=== PATIENT | female | born 1975 | race Caucasian/White ===

== ENCOUNTER → 2021-02-14 | Outpatient (CLI) | payer OTHER ==
[~2021-02-14] MED LIST: ACETAMINOPHEN-1 EAC1 PO; AMOXICILLIN 50500 MG PO; CARAFATE 1 GM TA1 GM PO; HYDROCODONE-APA1 TA1 PO; IBUPROFEN 600600 M1 PO; LIDOCAINE VISC100 M1 SWISH&SPIT; MEDROLDOSEPACK PO; NAPROSYN500 MG PO; NOHOMEMEDICATIONS; NORCO 5-325 TA1 EACH PO; PEPCID20 MG PO; PROAIR HFA8.5 GM INH; REGLAN 10 MG TA10 MG PO; ROBAXIN 750 MG750 MG PO; VICODIN 5-5001 EACH PO; ZPAK PO
== END ==
LOC: M.RAD 09:00
PROVIDERS: ATTEND Family Medicine
DX: R92.2 Inconclusive mammogram (principal); N64.4 Mastodynia; Z80.3 Family history of malignant neoplasm of breast

== ENCOUNTER → 2021-06-14 | Outpatient (CLI) | payer OTHER | LOC: M.CT 09:39 | PROVIDERS: ATTEND Family Medicine | DX: Z13.6 Encounter for screening for cardiovascular disorders (principal); I25.10 Atherosclerotic heart disease of native coronary artery without angina pectoris ==

== ENCOUNTER → 2021-06-14 | Outpatient (CLI) | payer OTHER ==
--- NOTE | 2021-06-18 12:38 | PF ---
[address] [address] PULMONARY FUNCTION REPORT Name: GENEVIEVE WYNNEN Room: [facility]#: [id number] Admission: 06/14/21 Attend Phys: Jamie Baker DO Discharge: Date of : 79 Report #: [id number] THIS REPORT FOR: cc: Jamie Baker Adam J DO Pervez, Adeel MD ~ DATE OF VISIT: 06/14/2021 The FEV1/FVC ratio is decreased to 64% with an FVC normal at 92% and FEV1 decreased to 73%. The FEF 25-75 is also decreased to 49%. After the administration of a bronchodilator, there is no significant increase in any of these values. The patient's post-bronchodilator FEV1 is 2.27 L. The total lung capacity is normal at 84% with residual volume decreased to 48%. The DLCO as adjusted for hemoglobin is decreased to 74%. IMPRESSION: 1. Moderate obstruction without evidence of reversibility. 2. There is an isolated reduction in residual volume to 48% on lung volumes. The total lung capacity is normal. This could be a normal variant or could be secondary to mild restriction. 3. The DLCO as adjusted for hemoglobin is mildly decreased to 74%. <ELECTRONICALLY SIGNED> By: Randall Nichols MD 06/18/21 1238 [id number] danica Kuhn
== END ==
LOC: M.PUL 09:56
PROVIDERS: ATTEND Family Medicine
DX: J98.8 Other specified respiratory disorders (principal); R06.02 Shortness of breath; R68.89 Other general symptoms and signs; Z72.0 Tobacco use